=== PATIENT | male | born 1990 | race Caucasian/White ===

== ENCOUNTER 2025-03-29 11:17 | Emergency (ER) | payer SELFPAY ==
[~2025-03-29] VITALS: Ht 160 cm; Wt 65.8 kg
[2025-03-29 11:55] LABS: BASOPHILS # (AUTO) 0.1 K/UL (0.0-0.2); BASOPHILS % (AUTO) 1.1 % (0.0-2.0); EOSINOPHILS # (AUTO) 0.6 K/uL (0.0-0.7); EOSINOPHILS % (AUTO) 8.3 % (0.0-7.0); HEMATOCRIT 40.7 % (36.7-47.1); HEMOGLOBIN 13.6 g/dL (12.5-16.3); LYMPHOCYTES # (AUTO) 2.4 K/uL (0.8-4.8); LYMPHOCYTES % (AUTO) 34.2 % (20.5-51.5); MEAN CORPUSCULAR HEMOGLOBIN 28.6 uug (23.8-33.4); MEAN CORPUSCULAR HGB CONC 34 g/dL (32.5-36.3); MEAN CORPUSCULAR VOLUME 85.4 fL (73.0-96.2); MONOCYTES # (AUTO) 0.4 K/uL (0.1-1.30); MONOCYTES % (AUTO) 5.1 % (0.0-11.0); NEUTROPHILS # (AUTO) 3.6 K/uL (1.8-8.9); NEUTROPHILS % (AUTO) 51.3 % (38.5-71.5); PLATELET COUNT (AUTO) 239 K/uL (152-348); RED BLOOD CELL COUNT(AUTO) 4.77 MIL/uL (4.06-5.63); RED CELL DISTRIBUTION WIDTH 13.3 % (12.1-16.2)
[2025-03-29 12:02] LABS: CALCIUM 8.6 mg/dL (8.5-10.1); CREATININE 0.9 mg/dL (0.6-1.3); POTASSIUM 3.4 mmol/L (3.5-5.1)
[2025-03-29 12:03] LABS: DIFFERENTIAL COMMENT 1; ETHANOL < 3 MG/DL (0-10)
[2025-03-29] MEDS: IV NORMAL SALINE 1000 ML BAG IV ONE (12:04)
[2025-03-29 12:08] LABS: ALBUMIN 4.2 g/dL (3.4-5.0); BILIRUBIN,DIRECT 0.2 mg/dL (0.0-0.2); BILIRUBIN,TOTAL 0.5 mg/dL (0.2-1.0); TOTAL PROTEIN, SERUM 7.1 g/dL (6.4-8.2)
[2025-03-29] MEDS: METOCLOPRAMIDE HCL 10 MG/2 ML VIAL IV ONE (13:00)
[2025-03-29] MEDS ORDERED: METOCLOPRAMIDE HCL 10 MG/2 ML VIAL ONE (13:09)
[2025-03-29] MEDS ORDERED: METO-295 PO (13:15)
[2025-03-29 14:00] VITALS: BP 137/83; TEMP 97.8; O2SAT 97
== END 2025-03-29 14:01 | disposition home or self-care (01) ==
LOC: ER 11:21
DX: R42 Dizziness and giddiness (principal); F17.200 Nicotine dependence, unspecified, uncomplicated; F19.10 Other psychoactive substance abuse, uncomplicated; F41.9 Anxiety disorder, unspecified; Z88.1 Allergy status to other antibiotic agents; Z60.2 Problems related to living alone
CPT/HCPCS: 80076; 80048; 85025; 93005; 99284; 96361; 96374; 80320; 80307; J2765; J7040; A4606; A4663; G0480

== ENCOUNTER 2025-08-10 19:46 | Emergency (ER) | payer MEDICAID ==
[~2025-08-10] VITALS: Ht 160 cm; Wt 49.9 kg
[~2025-08-10 19:46] MED LIST: METO-295 PO
[2025-08-10 20:24] VITALS: BP 109/76; O2SAT 97
== END 2025-08-10 21:14 | disposition home or self-care (01) ==
LOC: ER 19:50
DX: M25.562 Pain in left knee (principal); M25.552 Pain in left hip; F17.210 Nicotine dependence, cigarettes, uncomplicated; Z59.00 Homelessness unspecified; Z88.1 Allergy status to other antibiotic agents; I51.9 Heart disease, unspecified; V89.0XXA Person injured in unspecified motor-vehicle accident, nontraffic, initial encounter; Y93.55 Activity, bike riding; Y92.89 Other specified places as the place of occurrence of the external cause; Y99.8 Other external cause status
CPT/HCPCS: 73502; A4606; A4663

== ENCOUNTER 2025-08-20 01:13 | Emergency (ER) | payer MEDICAID ==
[~2025-08-20] VITALS: Ht 160 cm; Wt 49.9 kg
[2025-08-20 03:31] LABS: PLATELET COUNT (AUTO) 208 K/uL (152-348); RED BLOOD CELL COUNT(AUTO) 4.66 MIL/uL (4.06-5.63); RED CELL DISTRIBUTION WIDTH 13.4 % (12.1-16.2); WHITE BLOOD COUNT (AUTO) 15.0 K/uL (3.6-10.2)
[2025-08-20 03:35] LABS: CREATININE 0.8 mg/dL (0.6-1.3); SODIUM SERUM 136.0 mmol/L (136-145); UREA NITROGEN, BLOOD 18.0 mg/dL (7-18)
[2025-08-20 03:41] LABS: ASPARTATE AMINOTRANSFERASE 11.0 U/L (15-37); TOTAL PROTEIN, SERUM 7.1 g/dL (6.4-8.2)
[2025-08-20] MEDS ORDERED: IV NORMAL SALINE 250 ML IV ONE (03:44)
[2025-08-20] MEDS ORDERED: IOHEXOL 300MG/ML 100 ML INFUS..BTL ONE (03:44)
[2025-08-20] MEDS ORDERED: SWABABLE VALVE TRANSFER SET EA MC ONE (03:44)
[2025-08-20] MEDS ORDERED: diphenhydrAMINE 50 MG/1 ML VIAL ONE (04:04)
[2025-08-20] MEDS ORDERED: KETOROLAC TROMETHAMINE 15 MG INJ ONE (04:04)
[2025-08-20] MEDS ORDERED: CLINDAMYCIN 900MG/D5W 100ML IVPB **ER PYXIS ONLY IJ ONE (04:04)
[2025-08-20] MEDS: CLINDAMYCIN PHOSPHATE IV 900 MG in IV DEXTROSE 5% 100 ML IV ONE (04:12)
[2025-08-20] MEDS: diphenhydrAMINE 50 MG/1 ML VIAL IV ONE (04:12)
[2025-08-20] MEDS: KETOROLAC TROMETHAMINE 15 MG INJ IVP ONE (04:12)
[2025-08-20 05:00] VITALS: BP 120/81
[2025-08-20] MEDS ORDERED: NAPR-1009 PO (05:21)
[2025-08-20] MEDS ORDERED: CLIN300C12 PO (05:21)
[2025-08-20 05:44] VITALS: BP 126/80; O2SAT 99
== END 2025-08-20 05:28 | disposition home or self-care (01) ==
LOC: ER 01:15
DX: F11.90 Opioid use, unspecified, uncomplicated (principal); F17.210 Nicotine dependence, cigarettes, uncomplicated; Z59.00 Homelessness unspecified; Z88.1 Allergy status to other antibiotic agents; Z86.79 Personal history of other diseases of the circulatory system
CPT/HCPCS: 99285; 73201; 96365; 96375; 80053; 85025; 86140; 36415; J1885; J3490; J1200; Q9967; A4606; A4663